=== PATIENT | male | born 1985 | race Two or more races ===

== ENCOUNTER 2025-05-01 08:47 | Emergency (ER) | payer MEDICAID, SELFPAY ==
[2025-05-01 08:54] VITALS: BP 96/60; PULSE 54; RESP 21; TEMP 36.3; O2SAT 97
--- NOTE | 2025-05-01 09:17 | PD.EDABDPN ---
ED Abdominal Pain RME/HPI General Chief Complaint: Abdominal Pain Stated complaint: Abdominal pain, throat pain X 2 days Time seen by provider: 05/01/25 09:16 Arrival date/time: 05/01/25 08:47 RME / HPI RME / HPI narrative: See [facility] for Dr. Rubio's HPI Documentation. Related Data Home Medications ?Medication ?Instructions ?Recorded ?Confirmed Mv-Mn/FA/Coq10/Lycopene/Lutein 1 tab PO QDWM ##0 09/17/16 11/22/17 (Theragran-M Premier 50+ Caplet) docusate sodium 100 mg capsule 200 mg PO QDAY AD #0 caps 09/17/16 11/22/17 (Colace) ferrous sulfate 325 mg (65 mg 325 mg PO BID ##0 09/17/16 11/22/17 iron) tablet folic acid 5 mg/mL injection 5 mg PO QDAY ##0 09/17/16 11/22/17 solution levocarnitine 330 mg tablet 500 mg PO BID #0 tabs 09/17/16 11/22/17 (Carnitor) olanzapine 2.5 mg tablet (Zyprexa) 2.5 mg PO QPM BEHAVIORAL 09/17/16 11/22/17 MANAGEMENT #0 tabs paroxetine HCl 10 mg tablet (Paxil) 10 mg PO BID BEHAVIORAL MANAGEMENT 09/17/16 11/22/17 #0 tabs valproic acid 250 mg capsule 375 mg PO BID Seizures #0 caps 09/17/16 11/22/17 (Depakene) polyethylene glycol 3350 17 gram 5 ml PO QDAY 08/30/17 11/22/17 oral powder packet (Miralax) acetaminophen 160 mg/5 mL oral 480 mg PO QID PRN Fever Or Pain 11/22/17 11/22/17 elixir bisacodyl 10 mg rectal suppository 10 mg FL QDAY PRN Constipation 11/22/17 11/22/17 erythromycin with ethanol 2 % 11/22/17 topical solution ibuprofen 100 mg/5 mL oral 400 mg PO QID PRN Fever Or Pain 11/22/17 11/22/17 suspension Allergies Allergy/AdvReac Type Severity Reaction Status Date / Time atropine Allergy Intermediate Anaphylaxis Verified 05/01/25 08:54 norepinephrine AdvReac Severe Anaphylaxis Verified 05/01/25 08:54 Review of Systems Review of Systems Systems Reviewed: All systems reviewed, normal except as documented Past Medical History Past Medical History NEUROLOGIC: Positive Neurological Disorders (hydrocephalus with shunt), Seizures, Epilepsy and Cerebral Palsy OTHER HISTORY: Positive Developmental Delay Surgical History SURGICAL: Positive Brain Shunt Social History SMOKING STATUS: Never smoker SUBSTANCE USE: does not use ALCOHOL: Never ED Exam Narrative Physical exam: See [facility] for Dr. Rubio's HPI Documentation. Course Quality Measures none Orders Category Date Time Status Saline [Insert IV] NOW Care 05/01/25 09:[address] chest abdomen pelvis wo Stat Exams 05/01/25 09:19 Completed US gall bladder Stat Exams 05/01/25 09:19 Completed XR chest 1V portable Stat Exams 05/01/25 09:19 Completed Amylase Stat Lab 05/01/25 10:02 Completed BNP [B-Type Natriuretic Peptide] Stat Lab 05/01/25 10:02 Completed Bilirubin,Direct Stat Lab 05/01/25 10:02 Completed Blood Culture (Lab) Stat Lab 05/01/25 10:02 Received CBC Stat Lab 05/01/25 10:07 Completed CMP [Comprehensive Metabolic Panel] Stat Lab 05/01/25 10:02 Completed COVID-19 Antigen (In-House) Stat Lab 05/01/25 11:56 Completed CRP [C-Reactive Protein] Stat Lab 05/01/25 10:02 Completed ESR [Sed Rate (ESR)] Stat Lab 05/01/25 10:07 Completed Influenza A & B Rapid Panel Stat Lab 05/01/25 11:56 Completed Lactate (Lactic Acid) Stat Lab 05/01/25 10:02 Completed Lactic Acid, 3 HR Stat Lab 05/01/25 13:56 Completed Lipase Stat Lab 05/01/25 10:02 Completed Magnesium Stat Lab 05/01/25 10:02 Completed Procalcitonin Stat Lab 05/01/25 10:02 Completed TSH [Thyroid Stimulating Hormone] Stat Lab 05/01/25 10:02 Completed Troponin I Stat Lab 05/01/25 10:02 Completed Ondansetron Inj [Zofran Inj] Med 05/01/25 09:18 Discontinued 4 mg IVP X1 ONE Ringers Lactated 1000 ml [Lactated Ringers] 1,000 ml Med 05/01/25 09:18 Discontinued IV 1,000 mls/hr Vital Signs Vital signs: Vital Signs Temperature 97.4 F 05/01/25 08:54 Pulse Rate 54 L 05/01/25 08:54 Respiratory Rate 21 H 05/01/25 08:54 Blood Pressure 96/60 05/01/25 08:54 Pulse Oximetry (%) 97 05/01/25 08:54 Oxygen Delivery Method Room Air 05/01/25 08:54 Abdominal Pain MDM MDM Narrative MDM Narrative:: This section includes all my notes and documentations, including HPI, PE, and ED course. Tom Rubio MD HPI: 40-year-old male from a residential here with possible abdominal pain. Staff reports increased agitation for the past several days. No obvious fever. No obvious headache. No cough or congestion. No other complaints. ROS: All negative except as documented in HPI. Physical Exam: General: Alert. No acute distress. Eyes: Conjunctivae and lids clear. EOMI. PERRL. ENT: No nasal congestion. Pharynx normal. Tympanic membrane normal bilaterally. Neck: Supple. No carotid bruit. No JVD. Heart: RRR. Lungs: No respiratory distress. Good air movement. No rhonchi, wheezing, rales. Abdomen: Soft and nontender. Normal bowel sounds. No distension. No rebound or guarding. Skin: Warm and dry. Neuro: Cranial Nerves II-XII grossly intact. No peripheral motor deficits. Musculoskeletal: All major joints and bones are not tender with no limited ROM. I reviewed all diagnostic test results: My interpretation of the chest x-ray is NAD. My review of the gall US report is NAD. My review of the chest/abdomen/pelvis CT report is NAD. Blood tests unremarkable. Covid/Influenza negative. At this point, diagnoses include: Agitation with unclear etiology Treatment here included: IVF Zofran 4 mg IV Patient remained stable. Recommended continued monitoring. Based on my best medical judgment, made decision no further evaluation or treatment indicated at this time. Staff understands and agrees to the discharge instructions customized and printed, see below. Discharge Instructions from Dr. Rubio printed for you: 1. After extensive evaluation, including blood tests and EKG and imaging studies (CT, ultrasound, chest x-ray), exact cause of agitation was not determined. Swabs for COVID and influenza were negative. 2. Continue to monitor closely. 3. See a private doctor on 05/03/2025 for recheck. Ask to review all test results and official radiology reports, to make sure you receive all necessary follow-ups and monitoring. 4. Seek immediate medical care with worsening or with any concerns. Tom Rubio MD Patient data External records reviewed:: [facility] previous records Clinical information provided by:: patient and manager enterprise content management Social determinants that could affect healthcare access:: none Patient has the following chronic illnesses:: Hydrocephalus with brain shunt, seizures, cerebral palsy, and developmental delay. How is presenting disease/condition affected by chronic disease/condition?: exacerbated by Evaluation data The following diagnostics were reviewed and interpreted by me:: lab results and radiology exam(s) Lab and/or radiology exams considered but not ordered:: none Interpretation Summary: I reviewed all diagnostic test results: My interpretation of the chest x-ray is NAD. My review of the gall US report is NAD. My review of the chest/abdomen/pelvis CT report is NAD. Blood tests unremarkable. Covid/Influenza negative. Medications / Prescriptions Medications or Prescriptions considered but not ordered:: none Medication administrations:: Medication Administration History Discontinued Medications Lactated Ringer's (Lactated Ringers) 1,000 mls @ 1,000 mls/hr IV .Q1H ONE Stop: 05/01/25 10:17 Last Infusion: 05/01/25 11:30 Dose: Infused Documented By: Admin: 05/01/25 10:26 Dose: 1,000 mls/hr Documented By: JUANCARLOS Ondansetron HCl (Ondansetron Inj 2 Mg/Ml Inj 2 Ml) 4 mg IVP X1 ONE; Protocol Stop: 05/01/25 09:19 Last Admin: 05/01/25 10:19 Dose: 4 mg Documented By: JUANCARLOS Treatment here included: IVF Zofran 4 mg IV Consultations Consultation(s) initiated? (list below): No Diagnosis Differential diagnosis abdominal pain: acute appendicitis, calculus of kidney, constipation, diverticulitis, gastroenteritis, pancreatitis, small bowel obstruction and other Most likely diagnosis given after review of the tests above:: Agitation with unclear etiology Admission Indicated Admission indicated?: not indicated Explain why admission is indicated or not indicated:: With no condition needing emergent intervention, there was no indication for admission. Admission Request Was there a request for admission?: No Disposition Plan Disposition Plan: Discharge Discharge Attestation Discharge Attestation: The patient and all family members were given an opportunity to ask questions and understood the discharge instructions. Discharge instructions specifically effects, indications for sooner follow up or return to the emergency department, and the expected course of current diagnosis. Patient condition: Stable Discharge Plan Plan Patient Disposition: HOME (Self Care) Prescriptions/Referrals Prescriptions/Med Rec: No Action paroxetine HCl [Paxil] 10 MG tablet 10 mg PO BID Qty: 0 valproic acid [Depakene] 250 MG capsule 375 mg PO BID Qty: 0 levocarnitine [Carnitor] 330 MG tablet 500 mg PO BID Qty: 0 olanzapine [Zyprexa] 2.5 MG tablet 2.5 mg PO QPM Qty: 0 folic acid 5 MG/ML solution 5 mg PO QDAY Qty: 0 Mv-Mn/FA/Coq10/Lycopene/Lutein (Theragran-M Premier 50+ Caplet) 1 EACH tablet 1 tab PO QDWM Qty: 0 ferrous sulfate 325 ( 65 )MG tablet 325 mg PO BID Qty: 0 docusate sodium [Colace] 100 MG capsule 200 mg PO QDAY Qty: 0 polyethylene glycol 3350 [Miralax] 17 gram Powder In Packet 5 ml PO QDAY bisacodyl 10 mg Suppository 10 mg FL QDAY PRN (Reason: Constipation) acetaminophen 160 mg/5 mL Elixir 480 mg PO QID PRN (Reason: Fever Or Pain) ibuprofen 100 mg/5 mL Suspension 400 mg PO QID PRN (Reason: Fever Or Pain) erythromycin with ethanol 2 % Solution Referrals: Tila Mtz MD [Primary Care Provider] - In 1 week Problem List Clinical Impression: Agitation Patient/Caregiver Discharge Instructions Discharge Activity: activity as tolerated Education Materials: ED Irritable Child Additional Instructions: Discharge Instructions from Dr. Rubio printed for you: 1. After extensive evaluation, including blood tests and EKG and imaging studies (CT, ultrasound, chest x-ray), exact cause of agitation was not determined. Swabs for COVID and influenza were negative. 2. Continue to monitor closely. 3. See a private doctor on 05/03/2025 for recheck. Ask to review all test results and official radiology reports, to make sure you receive all necessary follow-ups and monitoring. 4. Seek immediate medical care with worsening or with any concerns. Print Language: Telugu Stand Alone Forms: [employer] Award Info., Patient Portal Info Letter
--- NOTE | 2025-05-01 09:19 | XR_ITS ---
Examination: Abdomen sonogram, Limited Date and time of exam: May 01, 2025, 1042 hours INDICATIONS: Abdominal pain today Technique: Real-time dangelo scale transabdominal sonographic images of the upper abdomen obtained. Findings: Negative for gallstones Gallbladder wall 0.4 cm no edema Common bile duct 0.2 cm Pancreatic head obscured by bowel gas Liver 14.6 cm right lobe liver cyst 10.4 cm x 7.6 cm Normal hepatopetal portal venous flow Patent IVC IMPRESSION: Negative for cholelithiasis Borderline thickening gallbladder wall but no gallbladder wall edema Normal common bile duct
--- NOTE | 2025-05-01 09:19 | XR_ITS ---
Examination: CT chest, without intravenous contrast. CT abdomen, without intravenous contrast. CT pelvis, without intravenous contrast. 2-D sagittal and coronal reconstructions. 3-D reconstructions. Date and time of exam: May 01, 2025, 0937 hours INDICATIONS: Abdominal pain chest pain today 10.910, 0.9 shortness of breath chest pain abdominal pain today CTDI vol (mgy) 10.9 DLP (MGycm) 732 Technique: Multiple CT images, 3.0 mm slice thickness, obtained chest, abdomen, pelvis, with the high-resolution 64 slice scanner.. Sagittal and coronal 2-D reconstructions are obtained. 3-D reconstructions Low dose protocols were performed. One or more of the following dose reduction techniques were used; automated exposure control, adjustment of the mA and/or KV according to patient size, use of iterative reconstruction technique. Findings: No thoracic aortic aneurysm dilatation or dissection Pulmonary arteries are not enlarged. No paratracheal tracheobronchial or bronchopulmonary adenopathy. No pneumonia, pulmonary edema or pleural disease. Large retrocardiac gastric hernia Large liver cyst No biliary tract dilatation Contracted gallbladder No pancreatic mass Air distended colon No hydronephrosis Aorta normal size No bowel obstruction No pericecal inflammatory change Abundant stool in the rectum with proctitis pattern No prostatomegaly No bladder mass or bladder calculi Adequate bone density IMPRESSION: No mediastinal lymphadenopathy No pneumonia, pulmonary edema or pleural disease , No obstruction Moderate colonic ileus moderate colonic ileus Proctitis pattern. No bowel obstruction or diverticulitis
--- NOTE | 2025-05-01 09:19 | XR_ITS ---
EXAMINATION: AP chest single view TECHNIQUE: AP portable semiupright chest single view Date and time: May 01, 2025, 10 0 7:00 a.m. INDICATIONS: Abdominal pain shortness of breath beginning 3 days ago. FINDINGS: Moderate enlargement left ventricle Retrocardiac gastric hernia Ventriculoperitoneal shunt tube No pneumonia or pulmonary edema Prominent osteopenia IMPRESSION: Moderate enlargement left ventricle No pneumonia or pulmonary edema
[2025-05-01 10:18] LABS: Lactate (Lactic Acid) 3.4 mMol/L (0.4-2.0)
[2025-05-01] MEDS: ONDANSETRON INJ 2 MG/ML INJ 2 ML 4 MG IVP (10:19)
[2025-05-01 10:25] LABS: Basophils # (Auto) 0.0 Thou/mm3 (0.0-0.2); Basophils % (Auto) 0 % (0-2.5); Eosinophils # (Auto) 0.1 Thou/mm3 (0.0-0.5); Eosinophils % (Auto) 1 % (0-10); Hematocrit 50.6 % (41.0-53.0); Hemoglobin 17.1 g/dL (13.5-16.0); Immature Granulocytes Auto 0.02 Thou/mm3 (0.00-0.00); Lymphocytes # (Auto) 2.0 Thou/mm3 (1.0-4.8); Lymphocytes % (Auto) 17 % (10-50); Mean Corpuscular HGB Conc 33.8 g/dl (31.0-37.0); Mean Corpuscular Hemoglobin 30.3 pg (25.0-35.0); Mean Corpuscular Volume 90 fL (80-100); Monocytes # (Auto) 0.9 Thou/mm3 (0.0-0.8); Monocytes % (Auto) 7 % (0-12); Neutrophils # (Auto) 8.6 Thou/mm3 (1.8-7.7); Neutrophils % (Auto) 75 % (37-80); Nucleated Red Blood Cell # 0.00 Thou/mm3 (0.00-0.00); Nucleated Red Blood Cell % 0 /100 WBC (0); Platelet Count 263 Thou/mm3 (140-440); RDW Standard Deviation 42.2 fL (35.1-43.9); Red Blood Count 5.64 Miln/mm3 (4.50-5.90); White Blood Count 11.6 Thou/mm3 (3.8-10.6)
[2025-05-01] MEDS: RINGERS LACTATED 1000 ML 1,000 ML IV (10:26)
[2025-05-01 10:45] LABS: B-Type Natriuretic Peptide < 20 pg/mL (0-100)
[2025-05-01 10:50] LABS: Alanine Aminotransferase 26 U/L (10-49); Albumin, Serum 5.6 gm/dL (3.5-5.0); Albumin/Globulin Ratio 1.9 (1.2-2.2); Alkaline Phosphatase 143 U/L (46-116); Amylase 77 U/L (30-118); Anion Gap 10 (7-16); Aspartate Amino Transferase 30 U/L (0-34); BUN/Creatinine Ratio 20 Ratio (12-20); Bilirubin,Direct 0.2 mg/dL (0.0-0.3); Bilirubin,Total 0.8 mg/dL (0.3-1.2); Blood Urea Nitrogen 16 mg/dL (9-23); C-Reactive Protein 0.6 mg/dL (0.0-0.9); Calcium 10.3 mg/dL (8.3-10.6); Calcium (Corrected) 10.3 mg/dL (8.5-10.1); Carbon Dioxide 27.8 mMol/L (20.0-31.0); Chloride 104 mMol/L (98-107); Creatinine (Component) 0.8 mg/dL (0.6-1.3); Estimated Creatinine Clearance 84.3 mL/min (>60); Globulin 2.9 gm/dL (2.3-3.5); Glucose 110 mg/dL (74-106); Lipase 47 U/L (12-53); Magnesium 2.0 mg/dL (1.6-2.6); Osmolality,Calculated 285 (275-295); Potassium 4.2 mMol/L (3.4-5.1); Sodium 142 mMol/L (136-145); Thyroid Stimulating Hormone 2.07 uIU/mL (0.55-4.78); Total Protein 8.5 gm/dL (5.7-8.2); Troponin I < 0.002 ng/mL (0.0-0.045); eGFR > 60 See Note
[2025-05-01 10:51] LABS: Sed Rate (ESR) 29 mm/hr (0-15)
[2025-05-01 10:54] LABS: Procalcitonin < 0.04 ng/ml (0.0-0.49)
[2025-05-01 12:26] LABS: COVID-19 Antigen (In-House) Negative (Negative); Influenza A Ag Negative; Influenza B Ag Negative
[2025-05-01 12:59] VITALS: BP 141/79; PULSE 104; RESP 18; TEMP 37.3; O2SAT 98
[2025-05-01 13:12] LABS: Reflex Lactate? Y
[2025-05-01 13:59] LABS: Lactic Acid, 3 HR 1.5 mMol/L (0.4-2.0)
[2025-05-01 14:17] VITALS: BP 143/82; PULSE 105; RESP 16; TEMP 37.4; O2SAT 95
[2025-05-01 14:35] VITALS: BP 123/62; PULSE 100; RESP 18; TEMP 37.2; O2SAT 96
--- NOTE | 2025-05-01 14:40 | PC.NURSE ---
PER PROVIDER, OKAY TO D/C WITHOUT COLLECTION OF UA.
== END 2025-05-01 14:35 | disposition home or self-care (01) ==
PROVIDERS: Emergency Provider Emergency Medicine; PCP Hospitalist
DX: R45.1 Restlessness and agitation (principal); R10.9 Unspecified abdominal pain; R06.02 Shortness of breath; R07.9 Chest pain, unspecified
CPT/HCPCS: 36415; 71045; 71250; 74176; 76705; 80053; 81001; 82150; 82248; 83605; 83690; 83735; 83880; 84145; 84443; 84484; 85025; 85652; 86140; 87040; 87502; 87811; 96361; 96374; 99284; J2405; J7120